=== PATIENT | female | born 1935 | race Caucasian/White ===

== ENCOUNTER 2018-01-24 13:23 | Day surgery (SDC) | payer OTHER ==
[~2018-01-24] VITALS: Ht 165.1 cm; Wt 49.9 kg
[~2018-01-24 13:23] MED LIST: CALCITONIN-SAL3.8 ML ALT NARES; DOK100 M1 PO; KLONOPIN0.5 M1 PO; LITE COAT ASPI325 M1 PO; NORCO 5/3251 TABLET PO; SINEQUAN50 MG PO; TYLENOL EXTRA500 MG PO; ULTRAM50 MG PO
[2018-01-24 14:19] VITALS: BP 173/79
[2018-01-24] MEDS ORDERED: HYDROCODON-ACE1 EAC7 PO (15:59)
[2018-01-24 17:20] VITALS: BP 154/70
[2018-01-24 18:10] VITALS: BP 162/68
[2018-01-24 18:52] VITALS: BP 165/71
== END 2018-01-24 19:10 | disposition home or self-care (01) ==
LOC: EDBD → SDC 13:23
DX: S32.030A Wedge compression fracture of third lumbar vertebra, initial encounter for closed fracture (principal); S32.040A Wedge compression fracture of fourth lumbar vertebra, initial encounter for closed fracture; W19.XXXA Unspecified fall, initial encounter; I10 Essential (primary) hypertension; Z79.82 Long term (current) use of aspirin; F17.200 Nicotine dependence, unspecified, uncomplicated
CPT/HCPCS: 72100; 76000; 88305; 88311; C1713; J0690; J1170; J2250; J2405; J3010